=== PATIENT | female | born 1960 | race Two or more races ===

== ENCOUNTER 2021-05-22 08:14 | Outpatient (CLI) | payer OTHER | END 2021-05-22 08:22 | disposition home or self-care (01) | LOC: RAD 08:14 | DX: M25.562 Pain in left knee (principal); M25.561 Pain in right knee; M76.52 Patellar tendinitis, left knee; M76.51 Patellar tendinitis, right knee ==

== ENCOUNTER → 2023-03-02 | Outpatient (CLI) | payer OTHER | END | disposition home or self-care (01) | LOC: SONOGRAMA 13:12 | PROVIDERS: ATTEND Family Medicine | DX: E04.2 Nontoxic multinodular goiter (principal) ==

== ENCOUNTER → 2023-05-12 | Outpatient (CLI) | payer OTHER | END | disposition home or self-care (01) | LOC: RAD 07:10 | PROVIDERS: ATTEND Family Medicine | DX: M17.0 Bilateral primary osteoarthritis of knee (principal) ==

== ENCOUNTER 2024-02-07 07:14 | Outpatient (CLI) | payer OTHER | END 2024-02-07 07:23 | disposition home or self-care (01) | LOC: SONOGRAMA 07:14 | PROVIDERS: ATTEND Family Medicine | DX: D21.0 Benign neoplasm of connective and other soft tissue of head, face and neck (principal); M17.0 Bilateral primary osteoarthritis of knee ==

== ENCOUNTER 2024-09-19 13:01 | Outpatient (CLI) | payer OTHER | END 2024-09-19 13:07 | disposition home or self-care (01) | LOC: RAD 13:01 | DX: M17.0 Bilateral primary osteoarthritis of knee (principal) ==

== ENCOUNTER 2025-05-07 07:08 | Outpatient (CLI) | payer OTHER | END 2025-05-07 07:15 | disposition home or self-care (01) | LOC: SONOGRAMA 07:08 | PROVIDERS: ATTEND Family Medicine | DX: E04.2 Nontoxic multinodular goiter (principal) ==

== ENCOUNTER 2025-09-24 14:04 | Outpatient (CLI) | payer OTHER | END 2025-09-24 14:10 | disposition home or self-care (01) | LOC: RAD 14:04 | DX: M17.11 Unilateral primary osteoarthritis, right knee (principal) ==